=== PATIENT | male | born 1975 | race African-American/Black ===

== ENCOUNTER 2019-01-09 12:10 | Emergency (ER) | payer OTHER ==
[2019-01-09 12:21] VITALS: BP 146/81; PULSE 89; TEMP 98; BMI 34.8
[2019-01-09 12:47] LABS: BASO % 0.5 % (0-2.0); EOS % 3.5 % (0-4.5); HEMATOCRIT 44.7 % (35.4-49); HEMOGLOBIN 15.3 GM/dL (11.7-16.9); MCH 32.2 pg (25.7-33.7); MCHC 34.3 g/dl (32.0-35.9); MEAN PLT VOLUME 8.2 fl (7.5-11.1); MONO % 11.9 % (3.8-10.2); NEUT % 55.1 % (42.8-82.8); PLATELET COUNT 224 K/MM3 (134-434); RBC 4.76 M/mm3 (4.00-5.60); RDW 13.4 % (11.9-15.9); WHITE BLOOD COUNT 8.2 K/mm3 (4.0-10.0)
[2019-01-09] MEDS ORDERED: LACTATED RINGERS SOLUTION 1000 ML INFUS.BAG IV ONE (13:34)
[2019-01-09] MEDS ORDERED: ACETAMINOPHEN 1000 MG/100 ML VIAL (NON FORMULARY) IVPB ONE (13:34)
[2019-01-09 13:38] LABS: ALBUMIN 4.2 g/dl (3.4-5.0); BILIRUBIN,TOTAL 0.8 mg/dL (0.2-1); BLOOD UREA NITROGEN 13.8 mg/dL (7-18); CREATININE 1.2 mg/dL (0.55-1.3); POTASSIUM 3.9 mmol/L (3.5-5.1)
[2019-01-09] MEDS ORDERED: ACETAMINOPHEN INJECTION 100 ML IVPB ONE (13:49)
--- NOTE | 2019-01-09 14:07 | PDOC ---
History of Present Illness - General Chief Complaint: Pain Stated Complaint: ABD PAIN Time Seen by Provider: 01/09/19 13:10 History Source: Patient Exam Limitations: No Limitations - History of Present Illness Initial Comments: HPI: 43 y/o male presenting to [facility] ER complaining of sudden onset of right sided abdominal pain around 11 am this morning. Pain was worse at onset and has improved. Migrated from right side towards midline near umbilicus. Describes it as a vague discomfort rather than pain. Endorses nausea with dry heaving on arrival. Denies diarrhea or urinary symptoms. No h/o of similar pain. Reports drinking heavily yesterday after working outside [place] golf [place] with poor hydration. Reports diagnosed with asymptomatic Trichomonas earlier this year. Does not believe he had a PHILIPPE after antibiotic therapy. Social Hx: - EtOH: Drinks heavily often but not everyday - Tobacco: Daily smoker - Street drugs: Denies Medical Hx: - Pt denies past medical history or prescription medications. Surgical Hx: - Denies past surgical history. Review of Systems: In addition to that documented in the HPI above, the additional ROS was obtained : Constitutional: Denies fevers, chills, diaphoresis Head: Denies vision changes ENMT: Denies sore throat CV: Denies chest pain Resp: Denies SOB GI: Endorses nausea w/ dry heaving. No vomiting or diarrhea : Denies painful urination, hematuria, increased urinary frequency, penile discharge, or testicular pain MSK: Denies recent trauma Skin: Denies new rashes Neuro: Denies new numbness or tingling or weakness Endocrine: Denies polyuria Heme: Denies bleeding or bruising Physical Examination: Constitutional: Well-developed, well-nourished, nontoxic adult male in no acute distress or obvious discomfort. Obese body habitus. Found lying prone on hospital bed. Rolled into semi-fowlers position without difficulty or obvious discomfort. Alert and oriented x4. Answered all questions appropriately and completely. Speech was non-labored, non-pressured. Head: Normocephalic. No obvious external signs of trauma. Cardiovascular / Chest: Regular rate and regular rhythm. No murmur, rubs, clicks , or gallops. Peripheral pulses: radial pulses full. Respiratory: Breathing unlabored. Equal chest rise and fall. Clear to auscultation bilaterally. No stridor, no wheezing, no rhonchi. Gastrointestinal: abdomen is diffusely tender without grimace, rebound, or guarding. When asked to clarify what part of the abdomen hurt worse with palpation, pt rubbed his entire abdomen. Globally, abdomen is soft and non- distended. No overlying skin lesions or obvious signs of trauma. Neuro: Alert and oriented. Moving all four extremities spontaneously. Skin: Warm, dry, and intact. : No R or L CVA tenderness. Psych: Affect: appropriate. Mood: normal. Male : Genital exam revealed normally developed male genitalia. Circumcised penis. No scrotal mass or tenderness, no hernias or inguinal lymphadenopathy. No perineal abnormalities are seen. No genital lesions or urethral discharge. sole seamer chaperoned exam. MDM: *Reviewed vital signs, nursing notes, and prior visit documentation (if available). 43 y/o male presenting to vague right sided abdominal pain and nausea x3 hours. Denies other systemic symptoms. Afebrile. Vitals unremarkable for hypotension or tachycardia. Physical exam as documented above. No peritoneal signs. CT of abdomen and pelvis revealed small obstructing right nephrolithiasis in at the UVJ with mild hydronephrosis. UA unremarkable for pyuria, nitrites, or leukocyte esterase. Cr and BUN within normal limits. Case discussed with Dr. Salinas, urologist erp consultant. Requests pt f/u in clinic tomorrow morning. Pt received LR IVFB, acetaminophen, and Naproxen for symptom relief. Prescribed short course of Naproxen for additional pain relief. Discussed imaging and laboratory results with pt. Answered all questions. Provided return precautions. Pt expressed verbal understanding and agreement with plan to discharge home with outpatient follow up tomorrow morning with urologist. Jey Trejo M.D., PGY1 Emergency Medicine Resident Past History - Past Medical History Allergies/Adverse Reactions: Allergies Allergy/AdvReac Type Severity Reaction Status Date / Time No Known Allergies Allergy Verified 01/09/19 12:18 Home Medications: Ambulatory Orders Naproxen [Naprosyn -] 500 mg PO BID PRN 7 Days #14 tablet 01/09/19 Anemia: No (SICKLE CELL TRAIT) COPD: No - Suicide/Smoking/Psychosocial Hx Smoking History: Never smoked Number of Cigarettes Smoked Daily: 5 Information on smoking cessation initiated: No 'Breaking Loose' booklet given: 10/05/15 Hx Alcohol Use: No Drug/Substance Use Hx: No *Physical Exam - Vital Signs Last Vital Signs Temp Pulse Resp BP Pulse Ox 98 F 89 17 146/81 97 01/09/19 12:18 01/09/19 12:18 01/09/19 12:18 01/09/19 12:18 01/09/19 12:18 ED Treatment Course - LABORATORY CBC & Chemistry Diagram: 01/09/19 12:32 01/09/19 12:32 - ADDITIONAL ORDERS Additional order review: Laboratory Results 01/09/19 12:32 Sodium 137 Potassium 3.9 Chloride 107 Carbon Dioxide 20 L Anion Gap 10 BUN 13.8 Creatinine 1.2 Est GFR (CKD-EPI)AfAm 86.53 Est GFR (CKD-EPI)NonAf 74.66 Random Glucose 128 H Calcium 9.0 Total Bilirubin 0.8 AST 30 ALT 35 Alkaline Phosphatase 89 Total Protein 8.0 Albumin 4.2 01/09/19 12:32 RBC 4.76 MCV 94.0 MCHC 34.3 RDW 13.4 MPV 8.2 Neutrophils % 55.1 D Lymphocytes % 29.0 D Monocytes % 11.9 H Eosinophils % 3.5 D Basophils % 0.5 - RADIOLOGY Radiology Studies Ordered: Category Date Time Status ABDOMEN & PELVIS CT WITH CONTR [CT] Stat CT Scan 01/09/19 13:44 Ordered - Medications Given in the ED: ED Medications Discontinued Medications Generic Name Dose Route Start Last Admin Trade Name Freq PRN Reason Stop Dose Admin Acetaminophen 1,000 mg 01/09/19 13:34 01/09/19 13:57 Ofirmev Injection - IVPB 01/09/19 13:35 1,000 mg ONCE ONE Administration *DC/Admit/Observation/Transfer Diagnosis at time of Disposition: Right nephrolithiasis, Hydronephrosis due to obstruction of ureter - Discharge Dispostion Disposition: HOME Condition at time of disposition: Stable Decision to Admit order: No - Prescriptions Prescriptions: Naproxen [Naprosyn -] 500 mg PO BID PRN 7 Days #14 tablet PRN Reason: Pain - Referrals Referrals: John Khalil MD [Primary Care Provider] - Colton Salinas MD., [Staff Physician] - - Patient Instructions Printed Discharge Instructions: DI for Kidney Stones Additional Instructions: You were seen today for right sided abdominal pain. Your CT scan showed a 3mm kidney stone on the right side. Your kidney function is normal and your urine test did not suggest an infection. I spoke to a urologist named Dr. Salinas about your symptoms and he would like you to follow up in the office tomorrow morning (, January 10, 2019) at 9: 30 in the morning. His office address is as follows: [address] [place] [address] I have sent a prescription for Naproxen to your pharmacy. Take as directed on the package insert. Do not exceed the recommended dosage. Do not take with other NSAID medications such as Ibuprofen, Advil, or Motrin. DO NOT TAKE THIS MEDICATION UNTIL MONDAY MORNING (January 10, 2019). YOU RECEIVED ONE DOSE IN THE ED. A copy of todays results are attached to this packet. Take it to the appointment so your doctor can review them. Go to the nearest emergency department if your condition worsens or you feel like you need additional emergency evaluation. Print Language: SWEDISH - Post Discharge Activity
[2019-01-09 15:58] LABS: EPI CELLS 0.2 /HPF (0-5/HPF); HYALINE CASTS 2 /lpf (0-8); URINE APPEARANCE CLEAR; URINE BACTERIA 3.9 /hpf (NEGATIVE); URINE BILIRUBIN NEGATIVE (NEGATIVE); URINE COLOR YELLOW; URINE GLUCOSE (UA) NEGATIVE (NEGATIVE); URINE KETONE TRACE (NEGATIVE); URINE LEUK ESTERASE NEGATIVE (NEGATIVE); URINE NITRITE NEGATIVE (NEGATIVE); URINE PROTEIN 2+ (NEGATIVE); URINE RBC 1 /hpf (0-4); URINE UROBILINOGEN 0.2 mg/dL (0.2-1.0); URINE WBC 2 /hpf (0-5)
--- NOTE | 2019-01-09 17:00 | PDOC ---
Documentation entered by Dilcia Madsen SCRIBE, acting as scribe for Em Mcbride MD. Em Mcbride MD: This documentation has been prepared by the Tena diaz Adrianna, SCRIBE, under my direction and personally reviewed by me in its entirety. I confirm that the documentation accurately reflects all work, treatment, procedures, and medical decision making performed by me. Attending Attestation - Resident Resident Name: Jey Trejo - ED Attending Attestation I have performed the following: I have examined & evaluated the patient, The case was reviewed & discussed with the resident, I agree w/resident's findings & plan, Exceptions are as noted - HPI HPI: The patient is a 43 year old male, with a significant PMH of asymptomatic Trichomonoas, who presents to the ED for evaluation of abdominal pain for 4 hours. Patient reports the pain is most prominent on the right side and radiates to the middle of his abdomen. He endorses associated nausea with dry heaving. Patient admits to heaving EtOH consumption yesterday with minimal hydration. Allergies: NKA, NKDA Surgical History: None reported Social History: Daily smoker. Heavy EtoH use. Denies marijuana use. 01/09/19 15:26 - Physicial Exam PE: 01/09/19 16:47 GENERAL: The patient is in no acute distress, sleeping during my assessment ENT: Ears normal, nares patent, oropharynx clear without exudates. Moist mucous membranes. NECK: Normal range of motion, supple LUNGS: Breath sounds equal, clear to auscultation bilaterally. No wheezes, and no crackles. HEART:Regular rate and rhythm, normal S1 and S2 without murmur, rub or gallop. ABDOMEN: Soft, nontender, normoactive bowel sounds. EXTREMITIES: Normal range of motion, no edema. NEUROLOGICAL: Cranial nerves II through XII grossly intact. Normal speech. No focal neurological deficits. SKIN: Warm, Dry, normal turgor, no rashes or lesions noted. 01/09/19 16:48 - Medical Decision Making 01/09/19 16:53 Mr Mansfield presents with a complaint of abdominal pain No fevers or chills On examination, no abdominal tenderness No urinary symptoms noted Laboratory Tests 10/05/15 10/05/15 01/09/19 13:11 13:20 12:32 WBC 11.0 H 8.2 Hgb 15.5 15.3 Hct 45.8 44.7 Plt Count 212 224 Sodium Potassium Chloride Anion Gap BUN 17 Creatinine 1.0 Random Glucose 110 H Lipase Urine Blood Urine Nitrite Ur Leukocyte Esterase Urine WBC (Auto) Urine RBC (Auto) 01/09/19 01/09/19 01/09/19 12:32 13:44 15:46 WBC Hgb Hct Plt Count Sodium 137 Potassium 3.9 Chloride 107 Anion Gap 10 BUN 13.8 Creatinine 1.2 Random Glucose 128 H Lipase 59 L Urine Blood Negative Urine Nitrite Negative Ur Leukocyte Esterase Negative Urine WBC (Auto) 2 Urine RBC (Auto) 1 UA no blood, no signs of infection CT performed and demonstrates 3mm obstructing UPJ stone Pt seems comfortable but when asked he says he has severe pain Will plan to discharge to home Call placed to Dr Salinas Plan per Dr Salinas is to follow up as an outpatient Return to the ER for any other concerns or complaints - fever, severe pain not treated by pain meds Clinical Impression: Right UVJ stone, initial presentation EXAM#: TYPE/EXAM: RESULT: [id number] CT/ABDOMEN PELVIS CT WITH CONTR Abdomen and pelvis CT (with contrast) Clinical information: right lower quadrant pain with sudden onset, nausea Impression: A 3 mm right ureterovesical junction calculus is noted with resultant mild hydronephrosis. 2 mm nonobstructing left renal calculus. Diffuse hepatic steatosis. Reported By: Dheeraj Jean MD 01/09/19 16:27
[2019-01-09] MEDS ORDERED: NAPROXEN 500 MG TABLET (FP) PO ONE (17:12)
[2019-01-09] MEDS ORDERED: NAPROXEN 500 MG TABLET (FP) ONE (17:26)
== END 2019-01-09 17:40 | disposition home or self-care (01) ==
LOC: JER 12:10
PROC: 3E033NZ Introduction of Analgesics, Hypnotics, Sedatives into Peripheral Vein, Percutaneous Approach (ICD-10-PCS; principal; 2019-01-09)
PROC: 3E0337Z Introduction of Electrolytic and Water Balance Substance into Peripheral Vein, Percutaneous Approach (ICD-10-PCS; 2019-01-09)
DX: N20.0 Calculus of kidney (principal); N13.30 Unspecified hydronephrosis; Z87.891 Personal history of nicotine dependence
CPT/HCPCS: 36415; 74177-TC; 80053; 81003; 83690; 85025; 87086; 87491; 87591; 87661; 99283-25; J0131

== ENCOUNTER 2019-01-29 07:52 | Day surgery (SDC) | payer OTHER ==
[2019-01-28 09:26] VITALS: BMI 37.6
== END 2019-01-29 10:50 | disposition home or self-care (01) ==
LOC: JASU-SURG 07:52
PROVIDERS: ATTEND Urology
DX: Z53.8 Procedure and treatment not carried out for other reasons (principal)
CPT/HCPCS: 74018-TC-FY

== ENCOUNTER 2022-01-25 04:21 | Day surgery (SDC) | payer OTHER ==
[2022-01-21 16:51] VITALS: BMI 38.6
[2022-01-25] MEDS ORDERED: MIDAZOLAM HCL 2 MG/2 ML SINGLE DOSE VIAL ONE (14:59)
[2022-01-25] MEDS ORDERED: oxyCODONE HCL 5 MG TABLET PO PRN (15:21)
[2022-01-25] MEDS ORDERED: ACETAMINOPHEN 325 MG TABLET (FP) PO PRN (15:21)
[2022-01-25] MEDS ORDERED: ONDANSETRON 4 MG/2 ML VIAL IVPUSH PRN (15:21)
[2022-01-25] MEDS ORDERED: LACTATED RINGERS SOLUTION 1,000 ML IV SCH (15:30)
[2022-01-25 16:53] VITALS: BP 136/88; PULSE 87; TEMP 97.8
== END 2022-01-25 17:25 | disposition home or self-care (01) ==
LOC: JASU-SURG 04:21
PROVIDERS: ATTEND Urology
PROC: 0TF4XZZ Fragmentation in Left Kidney Pelvis, External Approach (ICD-10-PCS; principal; 2022-01-25 15:00)
DX: N20.0 Calculus of kidney (principal)

== ENCOUNTER 2022-10-31 04:06 | Day surgery (SDC) | payer OTHER ==
[2022-10-27 11:50] VITALS: BMI 38.5
[2022-10-31] MEDS ORDERED: MIDAZOLAM HCL 2 MG/2 ML SINGLE DOSE VIAL ONE (13:44)
[2022-10-31] MEDS ORDERED: KETOROLAC TROMETHAMINE 30 MG/1 ML VIAL ONE (13:55)
[2022-10-31 15:01] VITALS: BP 124/84; PULSE 84; RESP 20; TEMP 98
== END 2022-10-31 14:26 | disposition home or self-care (01) ==
LOC: JASU-SURG 04:06
PROVIDERS: ATTEND Urology
PROC: 0TF3XZZ Fragmentation in Right Kidney Pelvis, External Approach (ICD-10-PCS; principal; 2022-10-31 12:30)
DX: N20.0 Calculus of kidney (principal)